=== PATIENT | female | born 1970 | race Caucasian/White ===

== ENCOUNTER → 2017-04-27 | Outpatient (CLI) | payer OTHER | LOC: FIMAGING 09:02 | PROVIDERS: ATTEND Obstetrics & Gynecology | DX: Z12.31 Encounter for screening mammogram for malignant neoplasm of breast (principal) ==

== ENCOUNTER 2017-05-19 11:08 | Emergency (ER) | payer OTHER ==
[2017-05-19 11:19] VITALS: TEMP 98.6
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
[2017-05-19] MEDS ORDERED: ONDANSETRON 4 MG/2 ML VIAL IVP ONE (12:18)
[2017-05-19] MEDS ORDERED: LORazepam 2 MG/ML INJ IVP ONE (12:18)
[2017-05-19] MEDS ORDERED: KETOROLAC 30 MG/1 ML SDV IVP ONE (12:18)
[2017-05-19] MEDS ORDERED: METOCLOPRAMIDE 10 MG/2 ML VIAL IVP ONE (12:18)
[2017-05-19 14:15] VITALS: BP 114/78; PULSE 90; RESP 18; O2SAT 97
== END 2017-05-19 14:52 | disposition home or self-care (01) ==
DX: G43.801 Other migraine, not intractable, with status migrainosus (principal)
CPT/HCPCS: 96374; J1885; J2060; J2405; J2765